=== PATIENT | female | born 1965 | race African-American/Black ===

== ENCOUNTER 2017-03-02 15:25 | Emergency (ER) | payer MEDICAID ==
[~2017-03-02] VITALS: Ht 154.9 cm; Wt 63.6 kg
[~2017-03-02 15:25] MED LIST: CALC-724 PO; HYDR25TA PO; SIMV10 PO
[2017-03-02] MEDS ORDERED: MACR100 PO (15:49)
[2017-03-02] MEDS ORDERED: OMEP20 PO (15:49)
[2017-03-02] MEDS ORDERED: CYCLOBENZAPRINE HCL 10 MG TABLET PO ONE (16:30)
[2017-03-02] MEDS ORDERED: IBUPROFEN 800 MG TABLET PO ONE (16:30)
[2017-03-02 17:25] VITALS: BP 116/58
== END 2017-03-02 18:05 | disposition home or self-care (01) ==
LOC: EMS 15:27
DX: S20.212A Contusion of left front wall of thorax, initial encounter (principal); S20.211A Contusion of right front wall of thorax, initial encounter; S20.222A Contusion of left back wall of thorax, initial encounter; S20.221A Contusion of right back wall of thorax, initial encounter; M62.830 Muscle spasm of back; J45.909 Unspecified asthma, uncomplicated; G43.909 Migraine, unspecified, not intractable, without status migrainosus; F17.210 Nicotine dependence, cigarettes, uncomplicated; Z88.5 Allergy status to narcotic agent; Z88.8 Allergy status to other drugs, medicaments and biological substances; W19.XXXA Unspecified fall, initial encounter; Y93.89 Activity, other specified; Y92.89 Other specified places as the place of occurrence of the external cause; Y99.8 Other external cause status
CPT/HCPCS: 71111; 99284

== ENCOUNTER 2017-03-07 05:49 | Emergency (ER) | payer SELFPAY ==
[~2017-03-07] VITALS: Ht 154.9 cm; Wt 68.2 kg
[~2017-03-07 05:49] MED LIST changes: -CALC-724 PO; -HYDR25TA PO; +MACR100 PO; +OMEP20 PO; -SIMV10 PO
[2017-03-07] MEDS ORDERED: KETOROLAC TROMETHAMINE 60 MG/2 ML VIAL IM ONE (06:45)
[2017-03-07 07:04] VITALS: BP 120/73
== END 2017-03-07 07:14 | disposition home or self-care (01) ==
LOC: EMS 05:50
DX: M54.9 Dorsalgia, unspecified (principal); Z76.5 Malingerer [conscious simulation]; J45.909 Unspecified asthma, uncomplicated; G43.909 Migraine, unspecified, not intractable, without status migrainosus; F17.210 Nicotine dependence, cigarettes, uncomplicated; Z88.5 Allergy status to narcotic agent; Z88.8 Allergy status to other drugs, medicaments and biological substances
CPT/HCPCS: 96372; 99283; J1885

== ENCOUNTER 2017-06-25 06:38 | Emergency (ER) | payer MEDICAID ==
[~2017-06-25] VITALS: Ht 154.9 cm; Wt 65.9 kg
[2017-06-25] MEDS ORDERED: SIMV-260 PO (06:47)
[2017-06-25] MEDS ORDERED: HYDR25TA PO (06:47)
[2017-06-25 07:14] VITALS: BP 112/70
[2017-06-25] MEDS ORDERED: ONDANSETRON HCL 4 MG TABLET PO ONE (07:15)
[2017-06-25] MEDS ORDERED: DONNATAL/LIDOCAINE/MAALOX 55 ML BOTTLE PO ONE (07:15)
[2017-06-25 07:44] LABS: BASOPHILS % (AUTO) 0.5 % (0.0-2.0); EOSINOPHILS % (AUTO) 1.6 % (1.0-6.0); HEMATOCRIT 37.9 % (36-46); HEMOGLOBIN 12.7 g/dL (12.0-16.0); LYMPHOCYTES # (AUTO) 1.4 K/uL (1.0-4.8); MEAN CORPUSCULAR HEMOGLOBIN 29.3 pg (26.0-34.0); MEAN CORPUSCULAR HGB CONC 33.5 G/dL (31.0-37.0); MEAN CORPUSCULAR VOLUME 87 fL (80-100); MONOCYTES # (AUTO) 0.5 K/uL (0.1-1.0); MONOCYTES % (AUTO) 9.5 % (2.0-9.0); NEUTROPHILS % (AUTO) 60.4 % (40.0-70.0); PLATELET COUNT (AUTO) 162 K/uL (150-450); RED BLOOD CELL COUNT(AUTO) 4.33 MIL/uL (4.00-5.20); RED CELL DISTRIBUTION WIDTH 13.3 % (11.5-14.5)
[2017-06-25 07:52] LABS: ANION GAP 9 mmol/L (8-16); CALCIUM, TOTAL 8.9 mg/dL (8.8-10.5); CARBON DIOXIDE 27 mmol/L (22-29); CHLORIDE 104 mmol/L (98-107); CREATININE 0.53 mg/dL (0.60-1.30); GLOMERULAR FILTR. RATE CALC > 60 mL/min (>60); POTASSIUM 3.3 mmol/L (3.5-5.1); SODIUM SERUM 140 mmol/L (136-145); UREA NITROGEN, BLOOD 9 mg/dL (7-18)
[2017-06-25 08:00] LABS: ALANINE AMINOTRANSFERASE 29 U/L (12-78); ALBUMIN 3.9 g/dL (3.4-5.0); ASPARTATE AMINOTRANSFERASE 24 U/L (15-37); BILIRUBIN,TOTAL 0.5 mg/dL (0.1-1.0); TOTAL PROTEIN, SERUM 7.8 g/dL (6.4-8.2)
[2017-06-25 08:02] LABS: GLUCOSE, URINE (UA) NEGATIVE (NEGATIVE); KETONES,URINE NEGATIVE (NEGATIVE); LEUKOCYTE ESTERASE ,URINE NEGATIVE (NEGATIVE); OCCULT BLOOD,URINE NEGATIVE (NEGATIVE); PH,URINE 5.5 (5.0-8.0); PROTEIN,URINE NEGATIVE (NEGATIVE)
[2017-06-25 08:03] LABS: ADD UA MICROSCOPIC NO; APPEARANCE,URINE CLEAR (CLEAR)
== END 2017-06-25 08:40 | disposition home or self-care (01) ==
LOC: EMS 06:39
DX: N76.0 Acute vaginitis (principal); F41.9 Anxiety disorder, unspecified; G43.909 Migraine, unspecified, not intractable, without status migrainosus; J45.909 Unspecified asthma, uncomplicated; F17.210 Nicotine dependence, cigarettes, uncomplicated; Z88.8 Allergy status to other drugs, medicaments and biological substances; Z88.6 Allergy status to analgesic agent; Z88.5 Allergy status to narcotic agent
CPT/HCPCS: 36415; 80053; 81003; 83690; 84484; 84703; 85025; 93005; 99285; 99406; Q0162; Z7610

== ENCOUNTER 2017-06-29 09:32 | Emergency (ER) | payer MEDICAID ==
[~2017-06-29] VITALS: Ht 154.9 cm; Wt 68.2 kg
[~2017-06-29 09:32] MED LIST changes: +HYDR25TA PO; -MACR100 PO; -OMEP20 PO; +SIMV-260 PO
[2017-06-29] MEDS ORDERED: MICO45CR11 VG (09:44)
[2017-06-29] MEDS ORDERED: TYL3B PO (09:44)
[2017-06-29] MEDS ORDERED: OMEP20CA10 PO (09:44)
[2017-06-29] MEDS ORDERED: PROMDM5L PO (09:44)
[2017-06-29] MEDS ORDERED: FLUT16H NS (09:44)
[2017-06-29] MEDS ORDERED: HC1C1.5 TP (09:44)
[2017-06-29] MEDS ORDERED: ALBU8.5H IH (09:44)
[2017-06-29] MEDS ORDERED: METR500 PO (09:44)
[2017-06-29 10:21] VITALS: BP 120/65
== END 2017-06-29 11:50 | disposition home or self-care (01) ==
LOC: EMS 09:33
DX: N76.0 Acute vaginitis (principal); B37.9 Candidiasis, unspecified; J45.909 Unspecified asthma, uncomplicated; G43.909 Migraine, unspecified, not intractable, without status migrainosus; F17.210 Nicotine dependence, cigarettes, uncomplicated; Z88.8 Allergy status to other drugs, medicaments and biological substances; Z88.5 Allergy status to narcotic agent; Z88.6 Allergy status to analgesic agent; Z76.0 Encounter for issue of repeat prescription
CPT/HCPCS: 99283

== ENCOUNTER 2018-01-09 14:18 | Emergency (ER) | payer MEDICAID, OTHER ==
[~2018-01-09] VITALS: Ht 154.9 cm; Wt 67.0 kg
[~2018-01-09 14:18] MED LIST changes: +ALBU8.5H8 IH; +FLUT16H NS; +HC1C1.5 TP; +METR500 PO; +MICO45CR11 VG; +OMEP20CA10 PO; +PROMDM5L PO; +TYL3B PO
[2018-01-09] MEDS ORDERED: PERTUSS(ACELL),DIPH,TET VAC/PF 0.5 ML VIAL IM ONE (15:30)
[2018-01-09 16:31] LABS: INFLUENZA TYPE A NEGATIVE FOR TYPE A (NEGATIVE); INFLUENZA TYPE B NEGATIVE FOR TYPE B (NEGATIVE)
[2018-01-09 16:40] VITALS: BP 110/78
== END 2018-01-09 16:46 | disposition home or self-care (01) ==
LOC: EMS 14:22
DX: Z76.0 Encounter for issue of repeat prescription (principal); R05 Cough; R51 Headache; M79.1 Myalgia; J45.909 Unspecified asthma, uncomplicated; G43.909 Migraine, unspecified, not intractable, without status migrainosus; F17.210 Nicotine dependence, cigarettes, uncomplicated; Z88.5 Allergy status to narcotic agent; Z88.8 Allergy status to other drugs, medicaments and biological substances
CPT/HCPCS: 87804; 90471; 90715; 99285; 99406

== ENCOUNTER 2018-02-11 20:56 | Emergency (ER) | payer OTHER ==
[~2018-02-11] VITALS: Ht 154.9 cm; Wt 65.9 kg
[~2018-02-11 20:56] MED LIST changes: -METR500 PO
[2018-02-11 23:07] VITALS: BP 109/68
== END 2018-02-11 23:10 | disposition home or self-care (01) ==
LOC: EMS 20:58
DX: M25.521 Pain in right elbow (principal); M25.551 Pain in right hip; G89.29 Other chronic pain; J45.909 Unspecified asthma, uncomplicated; G43.909 Migraine, unspecified, not intractable, without status migrainosus; F17.210 Nicotine dependence, cigarettes, uncomplicated; Z76.0 Encounter for issue of repeat prescription; Z88.5 Allergy status to narcotic agent; Z88.8 Allergy status to other drugs, medicaments and biological substances
CPT/HCPCS: 99283

== ENCOUNTER 2018-06-05 00:43 | Emergency (ER) | payer OTHER ==
[~2018-06-05] VITALS: Ht 167.6 cm; Wt 84.1 kg
[~2018-06-05 00:43] MED LIST changes: -FLUT16H NS; -HC1C1.5 TP; -HYDR25TA PO; -MICO45CR11 VG; -OMEP20CA10 PO; -PROMDM5L PO; -SIMV-260 PO
[2018-06-05 01:42] LABS: BASOPHILS % (AUTO) 0.7 % (0.0-2.0); EOSINOPHILS % (AUTO) 1.5 % (1.0-6.0); HEMOGLOBIN 11.8 g/dL (12.0-16.0); LYMPHOCYTES # (AUTO) 1.7 K/uL (1.0-4.8); LYMPHOCYTES % (AUTO) 33.5 % (22.0-44.0); MEAN CORPUSCULAR HEMOGLOBIN 28.7 pg (26.0-34.0); MEAN CORPUSCULAR HGB CONC 33.7 G/dL (31.0-37.0); MEAN CORPUSCULAR VOLUME 85 fL (80-100); MONOCYTES # (AUTO) 0.5 K/uL (0.1-1.0); MONOCYTES % (AUTO) 9.2 % (2.0-9.0); NEUTROPHILS # (AUTO) 2.7 K/uL (1.8-7.7); NEUTROPHILS % (AUTO) 55.1 % (40.0-70.0); PLATELET COUNT (AUTO) 175 K/uL (150-450); RED BLOOD CELL COUNT(AUTO) 4.11 MIL/uL (4.00-5.20); RED CELL DISTRIBUTION WIDTH 13.1 % (11.5-14.5)
[2018-06-05 02:08] LABS: APPEARANCE,URINE CLEAR (CLEAR); BILIRUBIN,URINE NEGATIVE (NEGATIVE); GLUCOSE, URINE (UA) NEGATIVE (NEGATIVE); KETONES,URINE NEGATIVE (NEGATIVE); LEUKOCYTE ESTERASE ,URINE TRACE (NEGATIVE); NITRATE,URINE NEGATIVE (NEGATIVE); OCCULT BLOOD,URINE NEGATIVE (NEGATIVE); PROTEIN,URINE NEGATIVE (NEGATIVE); UROBILINOGEN,URINE 0.2 mg/dL (<=1.0)
[2018-06-05 02:16] LABS: ANION GAP 10 mmol/L (8-16); CALCIUM, TOTAL 8.5 mg/dL (8.8-10.5); CARBON DIOXIDE 25 mmol/L (22-29); CHLORIDE 104 mmol/L (98-107); CREATININE 0.67 mg/dL (0.60-1.30); GLOMERULAR FILTR. RATE CALC > 60 mL/min (>60); GLUCOSE,RANDOM 99 mg/dL (70-110); POTASSIUM 3.3 mmol/L (3.5-5.1); SODIUM SERUM 139 mmol/L (136-145); UREA NITROGEN, BLOOD 7 mg/dL (7-18)
[2018-06-05 02:21] LABS: BACTERIA,URINE Few /HPF (None Seen); RBC,URINE 0-2 /HPF (0-2); SQUAMOUS EPITHELIAL CELL,UR Rare /LPF (None Seen)
[2018-06-05 02:23] LABS: ALANINE AMINOTRANSFERASE 29 U/L (12-78); ALBUMIN 3.9 g/dL (3.4-5.0); ALKALINE PHOSPHATASE 60 U/L (46-116); ASPARTATE AMINOTRANSFERASE 29 U/L (15-37); BILIRUBIN,TOTAL 0.6 mg/dL (0.1-1.0); TOTAL PROTEIN, SERUM 7.6 g/dL (6.4-8.2)
[2018-06-05] MEDS ORDERED: POTASSIUM CHLORIDE 20 MEQ ER TABLET PO ONE (03:15)
[2018-06-05 03:41] VITALS: BP 129/75
== END 2018-06-05 03:44 | disposition home or self-care (01) ==
LOC: EMS 00:45
DX: G43.909 Migraine, unspecified, not intractable, without status migrainosus (principal); R42 Dizziness and giddiness; R20.8 Other disturbances of skin sensation; M79.1 Myalgia; J45.909 Unspecified asthma, uncomplicated; F17.210 Nicotine dependence, cigarettes, uncomplicated; F41.9 Anxiety disorder, unspecified; Z87.440 Personal history of urinary (tract) infections; Z88.5 Allergy status to narcotic agent; Z88.8 Allergy status to other drugs, medicaments and biological substances
CPT/HCPCS: 70450; 93005; 99285

== ENCOUNTER 2018-06-27 00:27 | Emergency (ER) | payer OTHER ==
[~2018-06-27] VITALS: Ht 154.9 cm; Wt 65.9 kg
[~2018-06-27 00:27] MED LIST changes: -TYL3B PO
[2018-06-27 01:28] LABS: APPEARANCE,URINE CLEAR (CLEAR); BILIRUBIN,URINE NEGATIVE (NEGATIVE); GLUCOSE, URINE (UA) NEGATIVE (NEGATIVE); KETONES,URINE NEGATIVE (NEGATIVE); LEUKOCYTE ESTERASE ,URINE TRACE (NEGATIVE); NITRATE,URINE NEGATIVE (NEGATIVE); OCCULT BLOOD,URINE NEGATIVE (NEGATIVE); PH,URINE 6.5 (5.0-8.0); PROTEIN,URINE NEGATIVE (NEGATIVE); UROBILINOGEN,URINE 0.2 mg/dL (<=1.0)
[2018-06-27 01:43] LABS: BACTERIA,URINE Rare /HPF (None Seen); RBC,URINE 0-2 /HPF (0-2); SQUAMOUS EPITHELIAL CELL,UR Few /LPF (None Seen)
[2018-06-27] MEDS ORDERED: ACETAMINOPHEN 325 MG TABLET PO ONE (03:00)
[2018-06-27 03:01] VITALS: BP 121/64
== END 2018-06-27 03:03 | disposition home or self-care (01) ==
LOC: EMS 00:28
DX: N76.0 Acute vaginitis (principal); M79.604 Pain in right leg; J45.909 Unspecified asthma, uncomplicated; F41.9 Anxiety disorder, unspecified; F17.210 Nicotine dependence, cigarettes, uncomplicated; Z88.5 Allergy status to narcotic agent; Z88.8 Allergy status to other drugs, medicaments and biological substances
CPT/HCPCS: 99283

== ENCOUNTER 2019-01-02 21:42 | Emergency (ER) | payer OTHER ==
[~2019-01-02] VITALS: Ht 154.9 cm; Wt 65.9 kg
[2019-01-03] MEDS ORDERED: AMOXICILLIN TRIHYDRATE 250 MG CAPSULE PO ONE
[2019-01-03 00:15] VITALS: BP 120/72
== END 2019-01-03 00:36 | disposition home or self-care (01) ==
LOC: EMS 21:43
DX: K08.89 Other specified disorders of teeth and supporting structures (principal); R07.9 Chest pain, unspecified; J45.909 Unspecified asthma, uncomplicated; F41.9 Anxiety disorder, unspecified; G43.909 Migraine, unspecified, not intractable, without status migrainosus; F17.210 Nicotine dependence, cigarettes, uncomplicated; Z88.5 Allergy status to narcotic agent; Z88.8 Allergy status to other drugs, medicaments and biological substances
CPT/HCPCS: 93005

== ENCOUNTER 2019-04-29 14:12 | Emergency (ER) | payer OTHER ==
[~2019-04-29] VITALS: Ht 154.9 cm; Wt 70.9 kg
[2019-04-29] MEDS: HYDROCODONE/ACETAMINOPHEN 5-325 MG TABLET PO ONE (15:39)
[2019-04-29 17:31] VITALS: BP 119/66
== END 2019-04-29 17:38 | disposition home or self-care (01) ==
LOC: EMS 14:13
DX: S93.402A Sprain of unspecified ligament of left ankle, initial encounter (principal); J45.909 Unspecified asthma, uncomplicated; G43.909 Migraine, unspecified, not intractable, without status migrainosus; F41.9 Anxiety disorder, unspecified; F17.210 Nicotine dependence, cigarettes, uncomplicated; G89.29 Other chronic pain; Z88.5 Allergy status to narcotic agent; Z88.8 Allergy status to other drugs, medicaments and biological substances; X50.1XXA Overexertion from prolonged static or awkward postures, initial encounter; Y93.89 Activity, other specified; Y92.512 Supermarket, store or market as the place of occurrence of the external cause; Y99.8 Other external cause status

== ENCOUNTER 2019-07-01 15:09 | Emergency (ER) | payer OTHER ==
[~2019-07-01] VITALS: Ht 154.9 cm; Wt 68.0 kg
[2019-07-01 16:09] LABS: BASOPHILS % (AUTO) 0.4 % (0.0-2.0); EOSINOPHILS % (AUTO) 0.4 % (1.0-6.0); HEMOGLOBIN 12.5 g/dL (12.0-16.0); LYMPHOCYTES # (AUTO) 1.2 K/uL (1.0-4.8); MEAN CORPUSCULAR HEMOGLOBIN 29.3 pg (26.0-34.0); MEAN CORPUSCULAR HGB CONC 32.9 G/dL (31.0-37.0); MEAN CORPUSCULAR VOLUME 89 fL (80-100); MONOCYTES # (AUTO) 0.3 K/uL (0.1-1.0); MONOCYTES % (AUTO) 4.7 % (2.0-9.0); NEUTROPHILS # (AUTO) 5.3 K/uL (1.8-7.7); NEUTROPHILS % (AUTO) 77.5 % (40.0-70.0); PLATELET COUNT (AUTO) 186 K/uL (150-450); RED BLOOD CELL COUNT(AUTO) 4.27 MIL/uL (4.00-5.20); RED CELL DISTRIBUTION WIDTH 13.3 % (11.5-14.5)
[2019-07-01 16:10] LABS: APPEARANCE,URINE CLEAR (CLEAR); BILIRUBIN,URINE NEGATIVE (NEGATIVE); GLUCOSE, URINE (UA) NEGATIVE (NEGATIVE); KETONES,URINE NEGATIVE (NEGATIVE); LEUKOCYTE ESTERASE ,URINE NEGATIVE (NEGATIVE); NITRATE,URINE NEGATIVE (NEGATIVE); OCCULT BLOOD,URINE NEGATIVE (NEGATIVE); PH,URINE 5.5 (5.0-8.0); PROTEIN,URINE NEGATIVE (NEGATIVE); UROBILINOGEN,URINE 0.2 mg/dL (<=1.0)
[2019-07-01 16:32] LABS: ANION GAP 14 mmol/L (8-16); CALCIUM, TOTAL 9.6 mg/dL (8.8-10.5); CARBON DIOXIDE 22 mmol/L (22-29); CHLORIDE 105 mmol/L (98-107); CREATININE 0.64 mg/dL (0.60-1.30); GLOMERULAR FILTR. RATE CALC > 60 mL/min (>60); GLUCOSE,RANDOM 112 mg/dL (70-110); POTASSIUM 3.9 mmol/L (3.5-5.1); SODIUM SERUM 141 mmol/L (136-145); UREA NITROGEN, BLOOD 7 mg/dL (7-18)
[2019-07-01 16:46] LABS: ALANINE AMINOTRANSFERASE 21 U/L (12-78); ALBUMIN 4.2 g/dL (3.4-5.0); ALKALINE PHOSPHATASE 58 U/L (46-116); ASPARTATE AMINOTRANSFERASE 23 U/L (15-37); BILIRUBIN,TOTAL 0.6 mg/dL (0.1-1.0); LIPASE 202 U/L (73-393); TOTAL PROTEIN, SERUM 7.8 g/dL (6.4-8.2)
[2019-07-01 17:56] VITALS: BP 122/64
== END 2019-07-01 17:45 | disposition home or self-care (01) ==
LOC: EMS 15:11
DX: K59.00 Constipation, unspecified (principal); F41.9 Anxiety disorder, unspecified; J45.909 Unspecified asthma, uncomplicated; G43.909 Migraine, unspecified, not intractable, without status migrainosus; F17.210 Nicotine dependence, cigarettes, uncomplicated; Z88.5 Allergy status to narcotic agent; Z88.8 Allergy status to other drugs, medicaments and biological substances
CPT/HCPCS: 74018; 93005

== ENCOUNTER 2019-09-05 03:04 | Emergency (ER) | payer OTHER ==
[~2019-09-05] VITALS: Ht 154.9 cm; Wt 68.2 kg
[2019-09-05 03:41] LABS: GLUCOSE,POINT OF CARE 89 MG/DL (70-110)
[2019-09-05 05:54] VITALS: BP 127/71
== END 2019-09-05 06:06 | disposition home or self-care (01) ==
LOC: EMS 03:05
DX: G44.209 Tension-type headache, unspecified, not intractable (principal); K08.89 Other specified disorders of teeth and supporting structures; K59.00 Constipation, unspecified; G89.29 Other chronic pain; J45.909 Unspecified asthma, uncomplicated; F17.210 Nicotine dependence, cigarettes, uncomplicated; Z98.890 Other specified postprocedural states; Z88.5 Allergy status to narcotic agent; Z88.6 Allergy status to analgesic agent; Z88.8 Allergy status to other drugs, medicaments and biological substances

== ENCOUNTER 2019-09-21 21:11 | Emergency (ER) | payer OTHER ==
[~2019-09-21] VITALS: Ht 154.9 cm; Wt 68.2 kg
[2019-09-21 21:27] VITALS: BP 107/63
[2019-09-21] MEDS ORDERED: HYDR12.530 PO (21:29)
== END 2019-09-21 22:34 | disposition home or self-care (01) ==
LOC: EMS 21:12
DX: K08.89 Other specified disorders of teeth and supporting structures (principal); J45.909 Unspecified asthma, uncomplicated; I10 Essential (primary) hypertension; F41.9 Anxiety disorder, unspecified; G43.909 Migraine, unspecified, not intractable, without status migrainosus; Z76.5 Malingerer [conscious simulation]; Z87.891 Personal history of nicotine dependence; Z88.5 Allergy status to narcotic agent; Z88.8 Allergy status to other drugs, medicaments and biological substances

== ENCOUNTER 2019-11-10 11:10 | Emergency (ER) | payer OTHER ==
[~2019-11-10] VITALS: Ht 154.9 cm; Wt 68.2 kg
[~2019-11-10 11:10] MED LIST changes: -ALBU8.5H8 IH; +HYDR12.530 PO
[2019-11-10] MEDS ORDERED: VITAMIN D PO (11:39)
[2019-11-10] MEDS ORDERED: HIGH CHOLESTEROL MED PO (11:40)
[2019-11-10 14:10] VITALS: BP 142/75
== END 2019-11-10 14:26 | disposition home or self-care (01) ==
LOC: EMS 11:11
DX: K02.9 Dental caries, unspecified (principal); I10 Essential (primary) hypertension; G43.909 Migraine, unspecified, not intractable, without status migrainosus; J45.909 Unspecified asthma, uncomplicated; F41.9 Anxiety disorder, unspecified; Z98.890 Other specified postprocedural states; Z79.899 Other long term (current) drug therapy; Z88.5 Allergy status to narcotic agent; Z88.8 Allergy status to other drugs, medicaments and biological substances

== ENCOUNTER 2019-11-25 08:31 | Emergency (ER) | payer OTHER ==
[~2019-11-25] VITALS: Ht 165.1 cm; Wt 72.7 kg
[~2019-11-25 08:31] MED LIST changes: +HIGH CHOLESTEROL MED PO; +VITAMIN D PO
[2019-11-25] MEDS ORDERED: [UNRECOGNIZED DRUG - OTHER] IH (09:12)
[2019-11-25] MEDS ORDERED: SIMV-260 PO (09:12)
[2019-11-25] MEDS ORDERED: IPRATROPIUM BROMIDE 0.5 MG/2.5 ML NEB SOLUTION NEB ONE (09:45)
[2019-11-25] MEDS ORDERED: ALBUTEROL SULFATE 2.5 MG/0.5 ML NEB SOLUTION NEB ONE (09:45)
[2019-11-25] MEDS ORDERED: ALBUTEROL SULFATE HFA 90 MCG/PUFF 8 GM INHALER IH ONE (09:45)
[2019-11-25 10:20] VITALS: BP 111/75
== END 2019-11-25 10:32 | disposition home or self-care (01) ==
LOC: EMS 08:33
DX: J45.901 Unspecified asthma with (acute) exacerbation (principal); I10 Essential (primary) hypertension; G43.909 Migraine, unspecified, not intractable, without status migrainosus; F41.9 Anxiety disorder, unspecified; Z79.899 Other long term (current) drug therapy; Z88.5 Allergy status to narcotic agent; Z88.8 Allergy status to other drugs, medicaments and biological substances; Z98.890 Other specified postprocedural states
CPT/HCPCS: 94640; J3535

== ENCOUNTER 2019-12-13 16:42 | Emergency (ER) | payer OTHER ==
[~2019-12-13 16:42] MED LIST changes: -HIGH CHOLESTEROL MED PO; +SIMV-260 PO; -VITAMIN D PO; +[UNRECOGNIZED DRUG - OTHER] IH
== END 2019-12-13 17:07 | disposition left against medical advice (07) ==
LOC: EMS 16:42
DX: J45.909 Unspecified asthma, uncomplicated (principal); Z53.21 Procedure and treatment not carried out due to patient leaving prior to being seen by health care provider

== ENCOUNTER 2019-12-13 17:18 | Emergency (ER) | payer OTHER ==
[~2019-12-13] VITALS: Ht 154.9 cm; Wt 68.2 kg
[2019-12-13 17:19] VITALS: BP 126/70
== END 2019-12-13 18:28 | disposition left against medical advice (07) ==
LOC: EMS 17:18
DX: R06.2 Wheezing (principal); R07.9 Chest pain, unspecified; Z53.21 Procedure and treatment not carried out due to patient leaving prior to being seen by health care provider

== ENCOUNTER 2020-01-07 15:11 | Emergency (ER) | payer OTHER ==
[~2020-01-07] VITALS: Ht 167.6 cm; Wt 70.6 kg
[2020-01-07] MEDS ORDERED: CLAR250T39 PO (15:29)
[2020-01-07] MEDS ORDERED: CHOL200016 PO (15:29)
[2020-01-07] MEDS: KETOROLAC TROMETHAMINE 30 MG/ML VIAL IVP ONE (16:35)
[2020-01-07 16:38] LABS: BASOPHILS % (AUTO) 0.6 % (0.0-2.0); EOSINOPHILS % (AUTO) 0.9 % (1.0-6.0); HEMATOCRIT 37.1 % (36-46); HEMOGLOBIN 12.1 g/dL (12.0-16.0); LYMPHOCYTES # (AUTO) 1.4 K/uL (1.0-4.8); LYMPHOCYTES % (AUTO) 19.5 % (22.0-44.0); MEAN CORPUSCULAR HEMOGLOBIN 28.5 pg (26.0-34.0); MEAN CORPUSCULAR HGB CONC 32.8 G/dL (31.0-37.0); MEAN CORPUSCULAR VOLUME 87 fL (80-100); MONOCYTES # (AUTO) 0.5 K/uL (0.1-1.0); MONOCYTES % (AUTO) 7.3 % (2.0-9.0); NEUTROPHILS # (AUTO) 5.3 K/uL (1.8-7.7); NEUTROPHILS % (AUTO) 71.7 % (40.0-70.0); PLATELET COUNT (AUTO) 148 K/uL (150-450); RED BLOOD CELL COUNT(AUTO) 4.26 MIL/uL (4.00-5.20); RED CELL DISTRIBUTION WIDTH 13.3 % (11.5-14.5)
[2020-01-07 16:48] LABS: ANION GAP 7 mmol/L (8-16); CARBON DIOXIDE 29 mmol/L (22-29); CHLORIDE 104 mmol/L (98-107); CREATININE 0.62 mg/dL (0.60-1.30); GLOMERULAR FILTR. RATE CALC > 60 mL/min (>60); GLUCOSE,RANDOM 81 mg/dL (70-110); POTASSIUM 3.6 mmol/L (3.5-5.1); SODIUM SERUM 140 mmol/L (136-145); UREA NITROGEN, BLOOD 8 mg/dL (7-18)
[2020-01-07 16:52] LABS: INR 1.1 (0.9-1.1); PROTHROMBIN TIME 10.7 SEC (9.4-11.6)
[2020-01-07 16:53] LABS: ALANINE AMINOTRANSFERASE 48 U/L (12-78); ALBUMIN 3.4 g/dL (3.4-5.0); ALKALINE PHOSPHATASE 65 U/L (46-116); ASPARTATE AMINOTRANSFERASE 20 U/L (15-37); BILIRUBIN,TOTAL 0.7 mg/dL (0.1-1.0); CREATINE KINASE, TOTAL ONLY 55 U/L (26-192)
[2020-01-07 16:55] LABS: B-TYPE NATRIURETIC PEPTIDE 5 pg/mL (0-100)
[2020-01-07 17:57] LABS: APPEARANCE,URINE CLEAR (CLEAR); BILIRUBIN,URINE NEGATIVE (NEGATIVE); GLUCOSE, URINE (UA) NEGATIVE (NEGATIVE); KETONES,URINE NEGATIVE (NEGATIVE); LEUKOCYTE ESTERASE ,URINE NEGATIVE (NEGATIVE); NITRATE,URINE NEGATIVE (NEGATIVE); OCCULT BLOOD,URINE NEGATIVE (NEGATIVE); PH,URINE 6.5 (5.0-8.0); PROTEIN,URINE NEGATIVE (NEGATIVE); UROBILINOGEN,URINE 0.2 mg/dL (<=1.0)
[2020-01-07 18:02] LABS: AMPHET/METH SCREEN,URINE NEGATIVE (NEGATIVE); BARBITURATE SCREEN, URINE NEGATIVE (NEGATIVE); BENZODIAZEPINES SCREEN,URINE NEGATIVE (NEGATIVE); CANNABINOID SCREEN,URINE NEGATIVE (NEGATIVE); COCAINE SCREEN,URINE NEGATIVE (NEGATIVE); METHADONE SCREEN, URINE NEGATIVE (NEGATIVE); OPIATE SCREEN,URINE NEGATIVE (NEGATIVE)
[2020-01-07 18:03] LABS: PHENCYCLIDINE SCREEN,URINE NEGATIVE (NEGATIVE)
[2020-01-07 18:33] VITALS: BP 108/63
== END 2020-01-07 18:47 | disposition home or self-care (01) ==
LOC: EMS 15:13
DX: R07.89 Other chest pain (principal); G43.909 Migraine, unspecified, not intractable, without status migrainosus; J45.909 Unspecified asthma, uncomplicated; Z98.890 Other specified postprocedural states; Z79.899 Other long term (current) drug therapy; Z88.5 Allergy status to narcotic agent; Z88.6 Allergy status to analgesic agent; Z88.8 Allergy status to other drugs, medicaments and biological substances
CPT/HCPCS: 36415; 71045; 80053; 80307; 81003; 82550; 83880; 84484; 85025; 85610; 85730; 93005; 96374; 99285; J1885

== ENCOUNTER 2020-03-23 12:40 | Emergency (ER) | payer MEDICAID, OTHER ==
[~2020-03-23] VITALS: Ht 154.9 cm; Wt 70.9 kg
[~2020-03-23 12:40] MED LIST changes: +CHOL200016 PO; +CLAR250T39 PO; -HYDR12.530 PO; -SIMV-260 PO; -[UNRECOGNIZED DRUG - OTHER] IH
[2020-03-23] MEDS ORDERED: PROMETHAZINE HCL 25 MG TABLET PO ONE (13:30)
[2020-03-23] MEDS ORDERED: PB/HYOSCY/ATR/SCOP/LIDO/MAALOX 55 ML BOTTLE PO ONE (13:30)
[2020-03-23 13:59] VITALS: BP 121/73
== END 2020-03-23 14:02 | disposition home or self-care (01) ==
LOC: EMS 13:00
DX: K59.00 Constipation, unspecified (principal); K20.9 Esophagitis, unspecified; J45.909 Unspecified asthma, uncomplicated; F41.9 Anxiety disorder, unspecified; I10 Essential (primary) hypertension; G43.909 Migraine, unspecified, not intractable, without status migrainosus; Z88.5 Allergy status to narcotic agent; Z88.8 Allergy status to other drugs, medicaments and biological substances

== ENCOUNTER 2020-08-02 14:26 | Emergency (ER) | payer MEDICAID ==
[~2020-08-02] VITALS: Ht 172.7 cm; Wt 104.5 kg
[2020-08-02] MEDS ORDERED: ACET325S20 PR (14:31)
[2020-08-02 15:56] VITALS: BP 119/63
[2020-08-02] MEDS ORDERED: ACETAMINOPHEN/CODEINE 300-30 MG TABLET PO ONE (16:15)
[2020-08-02] MEDS ORDERED: FLUCONAZOLE 150 MG TABLET PO ONE (16:15)
== END 2020-08-02 17:00 | disposition home or self-care (01) ==
LOC: EMS 14:32
DX: K08.89 Other specified disorders of teeth and supporting structures (principal); L29.2 Pruritus vulvae; J45.909 Unspecified asthma, uncomplicated; I10 Essential (primary) hypertension; G43.909 Migraine, unspecified, not intractable, without status migrainosus; Z88.5 Allergy status to narcotic agent

== ENCOUNTER 2020-11-30 13:02 | Emergency (ER) | payer MEDICAID ==
[~2020-11-30] VITALS: Ht 154.9 cm; Wt 68.2 kg
[~2020-11-30 13:02] MED LIST changes: +ACET325S20 PR; -CLAR250T39 PO
[2020-11-30 13:14] VITALS: BP 126/75
== END 2020-11-30 16:19 | disposition home or self-care (01) ==
LOC: EMS 13:06
DX: B35.4 Tinea corporis (principal); L30.9 Dermatitis, unspecified; J35.8 Other chronic diseases of tonsils and adenoids; J45.909 Unspecified asthma, uncomplicated; F41.9 Anxiety disorder, unspecified; I10 Essential (primary) hypertension; G43.909 Migraine, unspecified, not intractable, without status migrainosus; Z88.5 Allergy status to narcotic agent; Z88.8 Allergy status to other drugs, medicaments and biological substances
CPT/HCPCS: 99283; Z7502

== ENCOUNTER 2020-12-18 10:24 | Emergency (ER) | payer MEDICAID ==
[~2020-12-18] VITALS: Ht 160 cm; Wt 65.9 kg
[2020-12-18] MEDS ORDERED: KETOROLAC TROMETHAMINE 30 MG/ML VIAL IM ONE (11:15)
[2020-12-18] MEDS ORDERED: KETOROLAC TROMETHAMINE 30 MG/ML VIAL IVP ONE (12:00)
[2020-12-18 12:12] LABS: BASOPHILS % (AUTO) 0.6 % (0.0-2.0); EOSINOPHILS % (AUTO) 1.6 % (1.0-6.0); HEMATOCRIT 38.1 % (36-46); HEMOGLOBIN 12.4 g/dL (12.0-16.0); LYMPHOCYTES # (AUTO) 1.4 K/uL (1.0-4.8); LYMPHOCYTES % (AUTO) 39.6 % (22.0-44.0); MEAN CORPUSCULAR HEMOGLOBIN 28.6 pg (26.0-34.0); MEAN CORPUSCULAR HGB CONC 32.7 G/dL (31.0-37.0); MEAN CORPUSCULAR VOLUME 87 fL (80-100); MONOCYTES # (AUTO) 0.3 K/uL (0.1-1.0); MONOCYTES % (AUTO) 8.8 % (2.0-9.0); NEUTROPHILS # (AUTO) 1.8 K/uL (1.8-7.7); NEUTROPHILS % (AUTO) 49.4 % (40.0-70.0); PLATELET COUNT (AUTO) 178 K/uL (150-450); RED BLOOD CELL COUNT(AUTO) 4.35 MIL/uL (4.00-5.20); RED CELL DISTRIBUTION WIDTH 13.6 % (11.5-14.5)
[2020-12-18 12:33] LABS: PROTHROMBIN TIME 10.7 SEC (9.4-11.6)
[2020-12-18 12:39] LABS: ANION GAP 10 mmol/L (8-16); CALCIUM, TOTAL 9.1 mg/dL (8.8-10.5); CARBON DIOXIDE 27 mmol/L (22-29); CHLORIDE 105 mmol/L (98-107); CREATININE 0.58 mg/dL (0.60-1.30); GLOMERULAR FILTR. RATE CALC > 60 mL/min (>60); GLUCOSE,RANDOM 81 mg/dL (70-110); POTASSIUM 3.4 mmol/L (3.5-5.1); SODIUM SERUM 142 mmol/L (136-145); UREA NITROGEN, BLOOD 6 mg/dL (7-18)
[2020-12-18 12:42] LABS: APPEARANCE,URINE CLEAR (CLEAR); BILIRUBIN,URINE NEGATIVE (NEGATIVE); GLUCOSE, URINE (UA) NEGATIVE (NEGATIVE); KETONES,URINE NEGATIVE (NEGATIVE); LEUKOCYTE ESTERASE ,URINE NEGATIVE (NEGATIVE); NITRATE,URINE NEGATIVE (NEGATIVE); OCCULT BLOOD,URINE NEGATIVE (NEGATIVE); PROTEIN,URINE NEGATIVE (NEGATIVE); UROBILINOGEN,URINE 0.2 mg/dL (<=1.0)
[2020-12-18 12:53] LABS: ALANINE AMINOTRANSFERASE 38 U/L (12-78); ALBUMIN 3.9 g/dL (3.4-5.0); ALKALINE PHOSPHATASE 76 U/L (46-116); ASPARTATE AMINOTRANSFERASE 24 U/L (15-37); BILIRUBIN,TOTAL 0.6 mg/dL (0.1-1.0); THYROID STIMULATING HORMONE 1.14 uIU/mL (0.36-3.74); TOTAL PROTEIN, SERUM 7.8 g/dL (6.4-8.2)
[2020-12-18 13:52] VITALS: BP 115/62
== END 2020-12-18 13:53 | disposition home or self-care (01) ==
LOC: EMS 10:24
DX: S80.12XA Contusion of left lower leg, initial encounter (principal); I10 Essential (primary) hypertension; J45.909 Unspecified asthma, uncomplicated; X58.XXXA Exposure to other specified factors, initial encounter; Y93.89 Activity, other specified; Y92.89 Other specified places as the place of occurrence of the external cause; Y99.8 Other external cause status
CPT/HCPCS: 36415; 80053; 81003; 84443; 84484; 85025; 85610; 93005; 96372; 99284; J1885

== ENCOUNTER 2020-12-28 12:29 | Emergency (ER) | payer MEDICAID ==
[~2020-12-28] VITALS: Ht 154.9 cm; Wt 72.7 kg
[2020-12-28 12:45] VITALS: BP 114/78
[2020-12-28] MEDS ORDERED: CHL25 PO (12:53)
[2020-12-28] MEDS ORDERED: SODIUM CHLORIDE 0.9% 1,000 ML IV ONE (15:00)
[2020-12-28 16:09] LABS: APPEARANCE,URINE CLOUDY (CLEAR); BILIRUBIN,URINE NEGATIVE (NEGATIVE); GLUCOSE, URINE (UA) NEGATIVE (NEGATIVE); KETONES,URINE NEGATIVE (NEGATIVE); LEUKOCYTE ESTERASE ,URINE NEGATIVE (NEGATIVE); NITRATE,URINE POSITIVE (NEGATIVE); OCCULT BLOOD,URINE TRACE (NEGATIVE); PROTEIN,URINE NEGATIVE (NEGATIVE); UROBILINOGEN,URINE 0.2 mg/dL (<=1.0)
[2020-12-28 16:43] LABS: BACTERIA,URINE Many /HPF (None Seen); RBC,URINE 0-2 /HPF (0-2); SQUAMOUS EPITHELIAL CELL,UR Rare /LPF (None Seen); WBC,URINE 0-2 /HPF (0-5)
== END 2020-12-28 15:41 | disposition left against medical advice (07) ==
LOC: EMS 12:33
DX: F41.9 Anxiety disorder, unspecified (principal); R42 Dizziness and giddiness
CPT/HCPCS: 87086; 93005; 99284; 81001-TC; 87077-TC; 87186-TC; Z7502

== ENCOUNTER 2021-02-21 10:31 | Emergency (ER) | payer MEDICAID ==
[~2021-02-21] VITALS: Ht 154.9 cm; Wt 70.5 kg
[~2021-02-21 10:31] MED LIST changes: -ACET325S20 PR; +CHL25 PO; -CHOL200016 PO
[2021-02-21 10:58] VITALS: BP 122/49
== END 2021-02-21 11:38 | disposition left against medical advice (07) ==
LOC: EMS 10:33
DX: R00.2 Palpitations (principal); H93.19 Tinnitus, unspecified ear; F41.9 Anxiety disorder, unspecified; J45.909 Unspecified asthma, uncomplicated; I10 Essential (primary) hypertension; G43.909 Migraine, unspecified, not intractable, without status migrainosus; Z87.440 Personal history of urinary (tract) infections; Z88.6 Allergy status to analgesic agent
CPT/HCPCS: 99281; Z7502

== ENCOUNTER 2021-04-30 12:34 | Emergency (ER) | payer MEDICAID ==
[~2021-04-30] VITALS: Ht 154.9 cm; Wt 69.5 kg
[2021-04-30 12:38] VITALS: BP 112/83
[2021-04-30] MEDS ORDERED: MetroNIDAZOLE 500 MG TABLET PO ONE (14:15)
[2021-04-30] MEDS ORDERED: CefTRIAXone SODIUM 1 GM/VIAL IM ONE (14:15)
[2021-04-30] MEDS ORDERED: AZITHROMYCIN 500 MG TABLET PO ONE (14:15)
[2021-04-30] MEDS ORDERED: LIDOCAINE/PF 1% 2 ML VIAL IM ONE (14:15)
[2021-04-30 15:22] LABS: APPEARANCE,URINE CLOUDY (CLEAR); BILIRUBIN,URINE NEGATIVE (NEGATIVE); GLUCOSE, URINE (UA) NEGATIVE (NEGATIVE); KETONES,URINE NEGATIVE (NEGATIVE); LEUKOCYTE ESTERASE ,URINE LARGE (NEGATIVE); NITRATE,URINE NEGATIVE (NEGATIVE); OCCULT BLOOD,URINE MODERATE (NEGATIVE); PROTEIN,URINE POS 1+ (NEGATIVE); UROBILINOGEN,URINE 0.2 mg/dL (<=1.0)
[2021-04-30 15:34] LABS: WBC,URINE >100 /HPF (0-5)
[2021-04-30 15:35] LABS: BACTERIA,URINE Many /HPF (None Seen); SQUAMOUS EPITHELIAL CELL,UR Few /LPF (None Seen)
== END 2021-04-30 15:04 | disposition home or self-care (01) ==
LOC: EMS 12:37
DX: A59.9 Trichomoniasis, unspecified (principal); I10 Essential (primary) hypertension; F41.9 Anxiety disorder, unspecified
CPT/HCPCS: 81001; 87086; 87210; 87220; 96372; 99284; A9575; J0696; J3490; 87077

== ENCOUNTER 2021-06-14 02:17 | Emergency (ER) | payer MEDICAID ==
[~2021-06-14] VITALS: Ht 154.9 cm; Wt 70.9 kg
[2021-06-14] MEDS ORDERED: IBUPROFEN 600 MG TABLET PO ONE (06:30)
[2021-06-14] MEDS ORDERED: FLUCONAZOLE 150 MG TABLET PO ONE (06:30)
[2021-06-14] MEDS: DEXAMETHASONE SOD PHOS 4 MG/ML 5 ML VIAL IM ONE ×2 (06:44→06:46)
[2021-06-14 07:53] VITALS: BP 123/71
== END 2021-06-14 08:24 | disposition home or self-care (01) ==
LOC: EMS 02:18
DX: J02.9 Acute pharyngitis, unspecified (principal); B37.3 Candidiasis of vulva and vagina; B35.6 Tinea cruris; J45.909 Unspecified asthma, uncomplicated; F41.9 Anxiety disorder, unspecified; I10 Essential (primary) hypertension; G43.909 Migraine, unspecified, not intractable, without status migrainosus; Z88.5 Allergy status to narcotic agent; Z88.8 Allergy status to other drugs, medicaments and biological substances
CPT/HCPCS: 96372; 99285; J1100; 87081

== ENCOUNTER 2021-06-21 16:14 | Emergency (ER) | payer MEDICAID ==
[~2021-06-21] VITALS: Ht 162.6 cm; Wt 65.9 kg
[2021-06-21 16:18] VITALS: BP 100/55
== END 2021-06-21 21:13 | disposition left against medical advice (07) ==
LOC: EMS 16:20
DX: R30.0 Dysuria (principal); M25.551 Pain in right hip; G89.29 Other chronic pain; J45.909 Unspecified asthma, uncomplicated; I10 Essential (primary) hypertension; G43.909 Migraine, unspecified, not intractable, without status migrainosus; Z88.5 Allergy status to narcotic agent; Z88.8 Allergy status to other drugs, medicaments and biological substances
CPT/HCPCS: 99281; Z7502

== ENCOUNTER 2022-04-16 19:35 | Emergency (ER) | payer MEDICAID ==
[~2022-04-16] VITALS: Ht 154.9 cm; Wt 63.0 kg
[2022-04-16 19:37] VITALS: BP 118/87
[2022-04-16] MEDS ORDERED: METR500 PO (20:02)
[2022-04-16] MEDS ORDERED: PERM60CR19 TP (20:02)
[2022-04-16] MEDS ORDERED: CEPH-558 PO (20:02)
[2022-04-16] MEDS ORDERED: ACET-2080 PO (20:03)
== END 2022-04-16 20:17 | disposition home or self-care (01) ==
LOC: EMS 19:38
DX: L03.012 Cellulitis of left finger (principal); L03.011 Cellulitis of right finger; N76.0 Acute vaginitis; F41.9 Anxiety disorder, unspecified; J45.909 Unspecified asthma, uncomplicated; I10 Essential (primary) hypertension; G43.909 Migraine, unspecified, not intractable, without status migrainosus; Z87.09 Personal history of other diseases of the respiratory system; Z87.440 Personal history of urinary (tract) infections; Z87.39 Personal history of other diseases of the musculoskeletal system and connective tissue; K80.80 Other cholelithiasis without obstruction; Z87.448 Personal history of other diseases of urinary system; Z98.890 Other specified postprocedural states; Z88.8 Allergy status to other drugs, medicaments and biological substances
CPT/HCPCS: 99283

== ENCOUNTER 2022-04-29 07:30 | Emergency (ER) | payer MEDICAID ==
[~2022-04-29] VITALS: Ht 154.9 cm; Wt 68.2 kg
[~2022-04-29 07:30] MED LIST changes: +ACET-2080 PO; +CEPH-558 PO; +METR500 PO; +PERM60CR19 TP
[2022-04-29 07:37] VITALS: BP 98/64
== END 2022-04-29 11:09 | disposition left against medical advice (07) ==
LOC: EMS 07:30
DX: Z53.21 Procedure and treatment not carried out due to patient leaving prior to being seen by health care provider (principal)

== ENCOUNTER 2022-05-30 11:51 | Emergency (ER) | payer MEDICAID ==
[~2022-05-30] VITALS: Ht 154.9 cm; Wt 68.2 kg
[2022-05-30] MEDS ORDERED: CALC-1009 PO (12:03)
[2022-05-30] MEDS ORDERED: ATOR10TA84 PO (12:03)
[2022-05-30] MEDS ORDERED: HYDR25TA2 PO (12:03)
[2022-05-30 12:46] VITALS: BP 116/68
[2022-05-30] MEDS ORDERED: FLUC150T61 PO (13:19)
== END 2022-05-30 13:34 | disposition home or self-care (01) ==
LOC: EMS 12:03
DX: M79.645 Pain in left finger(s) (principal); M79.644 Pain in right finger(s); F41.9 Anxiety disorder, unspecified; J45.909 Unspecified asthma, uncomplicated; K80.80 Other cholelithiasis without obstruction; E78.00 Pure hypercholesterolemia, unspecified; I10 Essential (primary) hypertension; G43.909 Migraine, unspecified, not intractable, without status migrainosus; F17.210 Nicotine dependence, cigarettes, uncomplicated; Z87.440 Personal history of urinary (tract) infections; Z87.09 Personal history of other diseases of the respiratory system; Z98.890 Other specified postprocedural states; Z88.5 Allergy status to narcotic agent; Z88.8 Allergy status to other drugs, medicaments and biological substances
CPT/HCPCS: 99283

== ENCOUNTER 2022-06-01 12:58 | Emergency (ER) | payer MEDICAID ==
[~2022-06-01] VITALS: Ht 154.9 cm; Wt 70.5 kg
[~2022-06-01 12:58] MED LIST changes: -ACET-2080 PO; +ATOR10TA84 PO; +CALC-1009 PO; -CEPH-558 PO; -CHL25 PO; +FLUC150T61 PO; +HYDR25TA2 PO; -METR500 PO; -PERM60CR19 TP
[2022-06-01 15:03] VITALS: BP 116/75
== END 2022-06-01 16:33 | disposition left against medical advice (07) ==
LOC: EMS 13:00
DX: R21 Rash and other nonspecific skin eruption (principal); R30.0 Dysuria; R35.0 Frequency of micturition; F41.9 Anxiety disorder, unspecified; J45.909 Unspecified asthma, uncomplicated; K80.80 Other cholelithiasis without obstruction; E78.00 Pure hypercholesterolemia, unspecified; I10 Essential (primary) hypertension; G43.909 Migraine, unspecified, not intractable, without status migrainosus; F17.210 Nicotine dependence, cigarettes, uncomplicated; Z87.09 Personal history of other diseases of the respiratory system; Z87.440 Personal history of urinary (tract) infections; Z87.39 Personal history of other diseases of the musculoskeletal system and connective tissue; Z98.890 Other specified postprocedural states; Z88.8 Allergy status to other drugs, medicaments and biological substances
CPT/HCPCS: 99281; Z7502

== ENCOUNTER 2022-06-13 13:10 | Emergency (ER) | payer MEDICAID ==
[~2022-06-13] VITALS: Ht 165.1 cm; Wt 70.5 kg
[~2022-06-13 13:10] MED LIST changes: -FLUC150T61 PO
[2022-06-13 13:14] VITALS: BP 95/51
== END 2022-06-13 14:14 | disposition left against medical advice (07) ==
LOC: EMS 13:10
DX: Z53.21 Procedure and treatment not carried out due to patient leaving prior to being seen by health care provider (principal)

== ENCOUNTER 2022-06-16 14:16 | Emergency (ER) | payer MEDICAID ==
[~2022-06-16] VITALS: Ht 154.9 cm; Wt 68.2 kg
[2022-06-16 17:38] LABS: COVID AG,FIA SOURCE NASAL SWAB
[2022-06-16 18:03] VITALS: BP 94/65
[2022-06-16] MEDS ORDERED: NIRM1TAB PO (18:09)
[2022-06-16] MEDS: AZITHROMYCIN 500 MG TABLET PO ONE ×2 (18:21→18:48)
[2022-06-16] MEDS: LIDOCAINE/PF 1% 2 ML VIAL IM ONE ×2 (18:21→18:48)
[2022-06-16] MEDS: CefTRIAXone SODIUM 1 GM/VIAL IM ONE ×2 (18:21→18:48)
== END 2022-06-16 19:08 | disposition home or self-care (01) ==
LOC: EMS 14:16
DX: U07.1 COVID-19 (principal); A64 Unspecified sexually transmitted disease; R05.9 Cough, unspecified; F17.210 Nicotine dependence, cigarettes, uncomplicated; F41.9 Anxiety disorder, unspecified; F60.9 Personality disorder, unspecified; J45.909 Unspecified asthma, uncomplicated; K80.80 Other cholelithiasis without obstruction; E78.00 Pure hypercholesterolemia, unspecified; I10 Essential (primary) hypertension; G43.909 Migraine, unspecified, not intractable, without status migrainosus; Z87.09 Personal history of other diseases of the respiratory system; Z87.440 Personal history of urinary (tract) infections; Z87.39 Personal history of other diseases of the musculoskeletal system and connective tissue; Z98.890 Other specified postprocedural states; Z88.1 Allergy status to other antibiotic agents; Z88.8 Allergy status to other drugs, medicaments and biological substances; Z88.5 Allergy status to narcotic agent; Z71.6 Tobacco abuse counseling
CPT/HCPCS: 99284; 71045; 87426; 99406; J0696; J3490; Q9967

== ENCOUNTER 2023-05-03 13:25 | Emergency (ER) | payer MEDICAID ==
[~2023-05-03] VITALS: Ht 154.9 cm; Wt 63.6 kg
[~2023-05-03 13:25] MED LIST changes: +ATOR10TA PO; -ATOR10TA84 PO; +NIRM1TAB4 PO
[2023-05-03 13:38] VITALS: BP 98/66; PULSE 82; RESP 16; TEMP 98.2
[2023-05-03] MEDS ORDERED: CALC-1009 PO (14:32)
[2023-05-03] MEDS ORDERED: PENI500T2 PO (14:32)
[2023-05-03] MEDS ORDERED: ALBU18HF12 IH (14:32)
[2023-05-03] MEDS ORDERED: DIPH50CA37 PO (14:32)
[2023-05-03] MEDS ORDERED: BECL10.62 IH (14:32)
[2023-05-03] MEDS ORDERED: CLOT15CR29 TP (14:32)
[2023-05-03] MEDS ORDERED: CLOB15CR10 TP (14:32)
== END 2023-05-03 14:42 | disposition home or self-care (01) ==
LOC: EMS 13:32
DX: T78.40XA Allergy, unspecified, initial encounter (principal); J45.901 Unspecified asthma with (acute) exacerbation; L30.9 Dermatitis, unspecified; F41.9 Anxiety disorder, unspecified; J45.909 Unspecified asthma, uncomplicated; E78.00 Pure hypercholesterolemia, unspecified; I10 Essential (primary) hypertension; G43.909 Migraine, unspecified, not intractable, without status migrainosus; F17.210 Nicotine dependence, cigarettes, uncomplicated; Z98.890 Other specified postprocedural states; Z88.6 Allergy status to analgesic agent; Z88.8 Allergy status to other drugs, medicaments and biological substances
CPT/HCPCS: 82962; 99283

== ENCOUNTER 2023-05-20 15:41 | Emergency (ER) | payer MEDICAID ==
[~2023-05-20] VITALS: Ht 162.6 cm; Wt 59.1 kg
[~2023-05-20 15:41] MED LIST changes: +ALBU18HF12 IH; +BECL10.62 IH; +CLOB15CR10 TP; +CLOT15CR29 TP; +DIPH50CA37 PO; +PENI500T2 PO
[2023-05-20 15:52] VITALS: TEMP 98.6
[2023-05-20 17:47] VITALS: BP 150/69; PULSE 87; RESP 18
[2023-05-20] MEDS ORDERED: CHOL400T33 PO (17:49)
[2023-05-20] MEDS ORDERED: CALC-1038 PO (17:49)
[2023-05-20] MEDS ORDERED: CYCL-448 PO (17:49)
[2023-05-20] MEDS ORDERED: MetroNIDAZOLE 250 MG TABLET PO ONE (18:00)
== END 2023-05-20 18:11 | disposition home or self-care (01) ==
LOC: EMS 15:44
DX: N76.0 Acute vaginitis (principal); M62.830 Muscle spasm of back; Z88.8 Allergy status to other drugs, medicaments and biological substances; Z88.6 Allergy status to analgesic agent
CPT/HCPCS: 99283

== ENCOUNTER → 2024-02-20 | Emergency (ER) | payer MEDICAID ==
[~2024-02-20] MED LIST changes: -ALBU18HF12 IH; -ATOR10TA PO; -BECL10.62 IH; -CALC-1009 PO; +CALC-1038 PO; +CHOL400T33 PO; -CLOB15CR10 TP; -CLOT15CR29 TP; +CYCL-448 PO; -DIPH50CA37 PO; -HYDR25TA2 PO; -NIRM1TAB4 PO; -PENI500T2 PO
== END | disposition still patient (30) ==
LOC: EMS 20:00
DX: Z53.21 Procedure and treatment not carried out due to patient leaving prior to being seen by health care provider (principal)

== ENCOUNTER 2024-04-24 17:22 | Emergency (ER) | payer MEDICAID ==
[~2024-04-24] VITALS: Ht 154.9 cm; Wt 5.5 kg
[2024-04-24 17:33] VITALS: BP 96/59; PULSE 96; RESP 20; TEMP 98.1
[2024-04-24] MEDS ORDERED: ALBU18HF12 IH ×2 (17:36→17:58)
[2024-04-24] MEDS ORDERED: DIPH50CA37 PO (17:58)
[2024-04-24] MEDS ORDERED: PERM60CR4 TP (17:58)
[2024-04-24] MEDS ORDERED: CARI-493 PO (17:58)
[2024-04-24] MEDS ORDERED: CHOL400T33 PO (17:58)
[2024-04-24] MEDS ORDERED: CALC-1038 PO (17:58)
[2024-04-24] MEDS ORDERED: FLUT1BLS19 IH (17:58)
[2024-04-25] MEDS ORDERED: IBUP-1554 PO (14:11)
== END 2024-04-24 18:06 | disposition home or self-care (01) ==
LOC: TELEHEALTH 17:24
DX: L30.9 Dermatitis, unspecified (principal); J44.9 Chronic obstructive pulmonary disease, unspecified; F41.9 Anxiety disorder, unspecified; J45.909 Unspecified asthma, uncomplicated; E78.00 Pure hypercholesterolemia, unspecified; I10 Essential (primary) hypertension; G43.909 Migraine, unspecified, not intractable, without status migrainosus; F17.210 Nicotine dependence, cigarettes, uncomplicated; Z98.890 Other specified postprocedural states; Z88.8 Allergy status to other drugs, medicaments and biological substances
CPT/HCPCS: 99281; Z7502

== ENCOUNTER 2024-06-21 15:51 | Emergency (ER) | payer MEDICAID, OTHER ==
[~2024-06-21] VITALS: Ht 154.9 cm; Wt 56.8 kg
[~2024-06-21 15:51] MED LIST changes: +ALBU18HF12 IH; +CARI-493 PO; +DIPH50CA37 PO; +FLUT1BLS19 IH; +IBUP-1554 PO; +PERM60CR4 TP
[2024-06-21 16:25] VITALS: BP 102/53; PULSE 75; RESP 18; TEMP 98
== END 2024-06-21 18:40 | disposition left against medical advice (07) ==
LOC: EMS 15:51
DX: R07.89 Other chest pain (principal); Z53.21 Procedure and treatment not carried out due to patient leaving prior to being seen by health care provider
CPT/HCPCS: 71045; 93005

== ENCOUNTER 2024-06-22 11:49 | Emergency (ER) | payer OTHER ==
[~2024-06-22] VITALS: Ht 154.9 cm; Wt 58.2 kg
[2024-06-22 12:12] VITALS: BP 90/54; PULSE 72; RESP 18; TEMP 98.3
== END 2024-06-22 13:42 | disposition left against medical advice (07) ==
LOC: EMS 11:49
DX: M79.601 Pain in right arm (principal); Z53.21 Procedure and treatment not carried out due to patient leaving prior to being seen by health care provider

== ENCOUNTER 2024-09-23 12:03 | Emergency (ER) | payer OTHER ==
[~2024-09-23] VITALS: Ht 157.5 cm; Wt 56.8 kg
[2024-09-23 12:20] VITALS: BP 106/87; PULSE 76; RESP 16; TEMP 97.9; O2SAT 99
== END 2024-09-23 12:55 | disposition left against medical advice (07) ==
LOC: EMS 12:03
DX: S00.00XD Unspecified superficial injury of scalp, subsequent encounter (principal); Z48.02 Encounter for removal of sutures; Z20.822 Contact with and (suspected) exposure to COVID-19; X58.XXXD Exposure to other specified factors, subsequent encounter

== ENCOUNTER 2025-03-01 10:33 | Emergency (ER) | payer OTHER ==
[~2025-03-01] VITALS: Ht 154.9 cm; Wt 61.4 kg
[2025-03-01 10:53] VITALS: BP 87/55; PULSE 75; RESP 16; TEMP 98.4; O2SAT 100
[2025-03-01] MEDS ORDERED: KETOROLAC TROMETHAMINE 30 MG/ML VIAL IM ONE (12:45)
== END 2025-03-01 13:42 | disposition left against medical advice (07) ==
LOC: EMS 10:42
DX: M79.604 Pain in right leg (principal); M79.605 Pain in left leg; M25.521 Pain in right elbow; F41.9 Anxiety disorder, unspecified; J45.909 Unspecified asthma, uncomplicated; I10 Essential (primary) hypertension; E78.00 Pure hypercholesterolemia, unspecified; F17.210 Nicotine dependence, cigarettes, uncomplicated; Z88.1 Allergy status to other antibiotic agents; Z88.5 Allergy status to narcotic agent; Z87.440 Personal history of urinary (tract) infections
CPT/HCPCS: 99282; Z7502